=== PATIENT | female | born 1985 | race Caucasian/White ===

== ENCOUNTER → 2016-10-22 | Outpatient (CLI) | payer OTHER ==
--- NOTE | 2016-10-22 15:37 | Diagnostic Imaging Report ---
PROCEDURE: US OB SINGLE FETUS <14 WKS. TECHNIQUE: Multiple real-time grayscale images were obtained over the gravid uterus in various projections. INDICATION: Dating. FINDINGS: There is suggestion of two gestational sacs in the uterine fundus. The one on the right side has an embryo that measures at 8 weeks and 2 days of gestation which would correspond with an PABLO of 06/01/2017. The cardiac heart rate in the embryo is 165 BPM. There is suggestion of a second gestational sac in the left side of the fundus of the uterus with hyperechoic material within it. This could be related to a second sac with a failed and embryo demise versus subchronic hemorrhage. IMPRESSION: 1. There is a live intrauterine with the embryo size at 8 weeks and 2 days within the upper right side aspect of the uterus. 2. In the left fundus, there is a partially cystic lesion which may represent embryo demise of a twin versus subchorionic hemorrhage. A followup ultrasound in a week is recommended. 3. The findings were discussed with Dr. Dumont by Dr. Rooney at the time of dictation. Dictated by: Dictated on workstation # [id number]
== END ==
LOC: RAD 10:13
PROVIDERS: ATTEND Family Medicine
DX: Z34.81 Encounter for supervision of other normal pregnancy, first trimester (principal)
CPT/HCPCS: 76801

== ENCOUNTER → 2016-11-14 | Outpatient (CLI) | payer OTHER ==
--- NOTE | 2016-11-14 13:19 | Diagnostic Imaging Report ---
PROCEDURE: US OB SINGLE FETUS <14 WKS. TECHNIQUE: Multiple real-time grayscale images were obtained over the gravid uterus in various projections. INDICATION: Followup cystic area adjacent to the intrauterine seen on the exam from 10/22/2016. FINDINGS: There is a single intrauterine with a heart rate at 120 BPM. The crown/rump length is 12 weeks and 1 day, concordant with the gestational age of 11 weeks and 4 days based on the first trimester ultrasound. The previously seen cystic area along the left side of the uterus has completely resolved. IMPRESSION: Live single intrauterine with appropriate interval growth. Dictated by: Dictated on workstation # [id number]
== END ==
LOC: RAD 09:50
PROVIDERS: ATTEND Family Medicine
DX: Z34.91 Encounter for supervision of normal pregnancy, unspecified, first trimester (principal)
CPT/HCPCS: 76801

== ENCOUNTER → 2017-01-10 | Outpatient (CLI) | payer OTHER ==
--- NOTE | 2017-01-10 17:32 | Diagnostic Imaging Report ---
INDICATION: survey. TECHNIQUE: Multiple real-time grayscale images were obtained over the gravid uterus. COMPARISON: 11/14/2016. FINDINGS: heart rate is 149 beats per minute. The cervix is 4.8 cm in length and is closed. There is no ventriculomegaly. The posterior fossa appears markable. The stomach, the kidneys, the urinary bladder with suggestion of two umbilical arteries around it is seen. The cord insertion is not well seen due to position as well as the spine. The four-chamber view is also not well seen. Current gestational age based on PABLO of a 06/01/2017 is 19 weeks and 5 days. Biometrical measurements are as follows: Biparietal 4.58 cm, age 19 weeks 6 days. Head circumference 17.11 cm, age 19 weeks 5 days. Abdominal circumference 14.37 cm, age 19 weeks 5 days. Femur length 3.06 cm, age 19 weeks 4 days. Sonographic estimate age: 19 weeks 5 days. Sonographic estimated date of delivery: 06/01/2017. Estimated Weight: 303 gm (+/- 2 gm). LMP percentile: 40%. heart rate: 149 beats per minute. number: 1 of 1. IMPRESSION: The four-chamber view, spine, and cord insertion are not well seen due to position. Followup study within two weeks is suggested to reevaluate. Dictated by: Dictated on workstation # [id number]
== END ==
LOC: RAD 13:25
PROVIDERS: ATTEND Family Medicine
DX: Z36 Encounter for antenatal screening of mother (principal); Z3A.19 19 weeks gestation of pregnancy
CPT/HCPCS: 76805

== ENCOUNTER → 2017-01-24 | Outpatient (CLI) | payer OTHER ==
--- NOTE | 2017-01-24 13:59 | Diagnostic Imaging Report ---
INDICATION: Assessment for incomplete prior anatomical assessment. TECHNIQUE: Multiple, limited real-time grayscale images were obtained over the gravid uterus. COMPARISON: 01/10/2017 FINDINGS: Limited obstetrical sonogram imaging demonstrates a cephalic presentation. There appears to be normal amount of amniotic fluid. Placenta is anterior without findings to suggest previa. cardiac activity 140 beats per minutes. On followup assessment, the spine, cord insertion site as well as cardiac structures appear unremarkable. IMPRESSION: Limited followup obstetrical sonogram imaging demonstrates no interval abnormality. Cephalic presentation. Dictated by: Dictated on workstation # [id number]
== END ==
LOC: RAD 11:10
PROVIDERS: ATTEND Family Medicine
DX: Z36 Encounter for antenatal screening of mother (principal); Z3A.00 Weeks of gestation of pregnancy not specified
CPT/HCPCS: 76816